=== PATIENT | male | born 1935 | race Caucasian/White ===

== ENCOUNTER 2016-11-17 15:55 | Observation (INO) | payer MEDICARE ==
[~2016-11-17] VITALS: Ht 175.3 cm; Wt 91.6 kg
[~2016-11-17 15:55] MED LIST changes: -CITALOPRAM HYDR40 MG PO; -GOOD NEIGHBOR P20 M1 PO
--- OUTSIDE RECORDS SUMMARY | 2016-11-17 15:59 | External Medical Summary Rpt ---
Author Author [facility], [employer] Organization [employer] Address Unknown Phone Unavailable
--- OUTSIDE RECORDS SUMMARY | 2016-11-17 15:59 | External Medical Summary Rpt ---
Author Author , Organization [employer] Address Unknown Phone Unavailable Purpose Continuity of Care Document - through 2016
--- OUTSIDE RECORDS SUMMARY | 2016-11-17 15:59 | External Medical Summary Rpt ---
Demographics Preferred Language Macedonian Marital Status Unknown Pentecostal Affiliation Unknown Race Unknown Ethnic Group Unknown Author Author , Organization [employer] Address Unknown Phone Unavailable Purpose Continuity of Care Document - through 2016 Immunization No patient found.
--- OUTSIDE RECORDS SUMMARY | 2016-11-17 15:59 | External Medical Summary Rpt ---
Author Author [employer] Organization [employer] Address Unknown Phone Unavailable Purpose Continuity of Care Document - through 2016
--- OUTSIDE RECORDS SUMMARY | 2016-11-17 15:59 | External Medical Summary Rpt ---
Author Author [facility] Organization [facility] Address Unknown Phone Unavailable Care Team Providers Care Supervisor Garage Name Role Phone KAYCEE, (REF) PCP [phone] Encounter [facility] [id number] Date(s): 09/03/16 - 09/16/16 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 Signs Most recent 1 2 3 to oldest [Reference Range]: Temperature Temporal artery Temporal artery Temporal artery Source scanning (09/16/16 scanning (09/16/16 scanning (09/16/16 12:56 PM) 12:30 PM) 11:45 AM) Temperature Fahrenheit Fahrenheit Fahrenheit Mode (09/16/16 12:56 (09/16/16 12:30 (09/16/16 11:45 PM) PM) AM) Temperature, 97.6 Deg F 97.4 Deg F 97.1 Deg F Fahrenheit (09/16/16 12:56 (09/16/16 12:30 (09/16/16 11:45 [96.8-99.7 PM) PM) AM) Deg F] Clinical 36.4 Deg C 36.3 Deg C 36.2 Deg C Temperature, (09/16/16 12:56 (09/16/16 12:30 (09/16/16 11:45 C PM) PM) AM) Peripheral 85 bpm 86 bpm 92 bpm Pulse Rate (09/16/16 1:45 PM) (09/16/16 1:30 PM) (09/16/16 1:15 PM) [60-100 bpm] Heart Rate 89 bpm (09/16/16 92 bpm (09/16/16 93 bpm (09/16/16 Monitored 12:40 PM) 12:30 PM) 12:20 PM) [60-100 bpm] Respiratory 16 Breaths/Min 14 Breaths/Min 14 Breaths/Min Rate [14-20 (09/16/16 12:30 (09/16/16 12:20 (09/16/16 12:15 Breaths/Min] PM) PM) PM) Blood 118/56 mmHg 118/58 mmHg 121/61 mmHg Pressure (09/16/16 1:45 PM) (09/16/16 1:30 PM) (09/16/16 1:15 PM) [90-140/60-9 0 mmHg] Mean 88 (09/16/16 12:56 88 (09/16/16 12:40 87 (09/16/16 12:30 Arterial PM) PM) PM) Pressure (MAP)-BMDI Oxygen 98 % 97 % 97 % Saturation (09/16/16 1:45 PM) (09/16/16 1:30 PM) (09/16/16 1:15 PM) [94-100 %] Oxygen Room air (09/16/16 Room air (09/16/16 Room air (09/16/16 Therapy Mode 12:56 PM) 12:45 PM) 12:40 PM) Oxygen Flow 6 Liter/Min 6 Liter/Min Rate (09/16/16 11:55 (09/16/16 11:45 AM) AM) Height Measured Source (09/15/16 3:31 PM) Height Entry Stevenson Format (09/15/16 3:31 PM) Height/Lengt 69 Inch h ERITREAN (09/15/16 3:31 PM) CLINICALHEIG 175.26 cm HT (09/15/16 3:31 PM) Weight Standing scale Source (09/15/16 3:31 PM) Weight Entry Stevenson Format (09/15/16 3:31 PM) Weight 205.8 lb Iranian lb (09/15/16 3:31 PM) CLINICALWEIG 93.55 kg HT (09/15/16 3:31 PM) Body Surface 2.09 m2 Area (BSA) (09/15/16 3:31 PM) Body Mass 30.5 kg/m2 Index *HI* [19.0-24.0 (09/15/16 3:31 PM) kg/m2] [place] Body 70 kg Weight (09/15/16 3:31 PM) Problem List Condition Effective Status Health Informant Dates Status Angina(Confi Active rmed) Arthritis(Co Active nfirmed) Back Active pain(Confirm ed) CA - Cancer Active of prostate(Con firmed) Cardiac Active arrhythmia, "beats fast"(Confir med) Chronic Active diarrhea(Con firmed) Coronary Active artery disease(Conf irmed) Disorder of Active prostate(Con firmed) Peripheral Active neuropathy(C onfirmed) Hard of Active hearing(Conf irmed) Hard of Active hearing(Conf irmed) Hyperlipidem Active ia(Confirmed ) Impaired Active vision(Confi rmed) Incontinence Active urine h/o(Confirme d) Insulin-depe Active ndent diabetes mellitus(Con firmed) Skin Active cancer(Confi rmed) Anxiety and Active depression(C onfirmed) Fluttering Active muscles(Conf irmed)1 Myocardial 2004 Active infarction(C onfirmed) neck pain Active when lying flat ; neck extension and turning limited(Conf irmed) gisele Active risk(Confirm ed) Peripheral Active neuropathy, bilateral feet(Confirm ed) right eyelid Active droops(Confi rmed) Sinusitis(Co Active nfirmed) Skin Active cancer(Confi rmed) weakness, Active freq. falls uses cane(Confirm ed) 1"fluttering sensation across chest and down left arm Allergies, Adverse Reactions, Alerts No Known Allergies Medications aspirin (Dawson Low Dose) 81 mg, Oral, Every Day, Refills: 0 atorvastatin 10 mg, Oral, At Bedtime, Refills: 0 citalopram 20 mg, Oral, Every Day, Refills: 0 clonazepam 0.5 mg, Oral, Two Times A Day, Refills: 0 gabapentin (gabapentin 100 mg oral capsule) 2 Cap, Oral, Four Times A Day, Refills: 0 insulin detemir (Levemir FlexPen)35 Units, SubCutaneous , At Bedtime, Refills: 0 insulin regular (Humulin R)30 Units, , SubCutaneous , at breakfast, Refills: 0 insulin regular (Humulin R) 30 Units, SubCutaneous , Every Day, Refills: 0 insulin regular (Humulin R) 30 Units, SubCutaneous , at dinner, Refills: 0 metolazone2.5 mg, Oral, Every Day, As Needed, Edema, Refills: 0 multivitamin 1 Tab, Oral, Every Day, Refills: 0 nitroglycerin (Nitrostat 0.4 mg sublingual tablet)1 Tab, SubLINgual , every 5 minutes, As Needed, Chest Pain, Refills: 0 oxybutynin (oxybutynin extended release) 10 mg, Oral, Every Day, Refills: 0 trazodone 50 mg, Oral, At Bedtime, Refills: 0 Results GENERAL CHEMISTRY Most recent 1 2 to oldest [Reference Range]: Device Notified Nurse RBV Comment 1 *NA* (09/16/16 11:51 AM) Glucose POC2 249 mg/dL 189 mg/dL [70-110 *HI* *HI* mg/dL] (09/16/16 11:51 AM) (09/16/16 8:50 AM) Immunizations No data available for this section Procedures Procedure Date Related Body Site Diagnosis skin cancer excision Social History Social History Response Type Smoking Status Tobacco Use Within Last Twelve Months Cigarettes; Former smoker; Years of Tobacco Use 10; Packs/Tins Daily 1; Used Tobacco, but Quit Yes; Month Tobacco Last Used quit 1989; Second Hand Smoke Exposure No; Tobacco Use/Smoking Within Last 30 Days No; Smokeless Tobacco Use History None; Smoking Frequency Within Last 30 Days None Assessment and Plan No data available for this section Hospital Discharge Instructions Patient EducationBiopsy, Care After, Pceo-zd-[id number] Incision Care, Febg-fh-Gssm Monitored Anesthesia Care
--- OUTSIDE RECORDS SUMMARY | 2016-11-17 15:59 | External Medical Summary Rpt ---
Demographics Preferred Language Armenian Marital Status Unknown Hinduism Affiliation Unknown Race Unknown Ethnic Group Unknown Author Author , Organization [employer] Address Unknown Phone Unavailable Purpose Continuity of Care Document - through 2016 Immunization No patient found.
--- OUTSIDE RECORDS SUMMARY | 2016-11-17 15:59 | External Medical Summary Rpt ---
Author Author [facility] Organization [facility] Address Unknown Phone Unavailable Care Team Providers Care Comic Illustrator Name Role Phone KAYCEE, (REF) PCP [phone] Encounter [facility] [id number] Date(s): 09/03/16 - 09/16/16 [facility] [address] [place] [address]- Discharge Disposition: OP Self Care or Home [...] Measured Source (09/15/16 3:31 PM) Height Entry Ensign Format (09/15/16 3:31 PM) Height/Lengt 69 Inch h BRITISH (09/15/16 3:31 PM) CLINICALHEIG 175.26 cm HT (09/15/16 3:31 PM) Weight Standing scale Source (09/15/16 3:31 PM) Weight Entry Ensign Format (09/15/16 3:31 PM) Weight 205.8 lb Egyptian lb (09/15/16 3:31 PM) CLINICALWEIG 93.55 kg HT (09/15/16 3:31 PM) Body Surface 2.09 m2 Area (BSA) (09/15/16 3:31 PM) Body Mass 30.5 kg/m2 Index *HI* [19.0-24.0 (09/15/16 3:31 PM) kg/m2] [place] Body 70 kg Weight (09/15/16 3:31 PM) [...] Hospital Discharge Instructions Patient EducationBiopsy, Care After, [id number]-kf-Aqxl Incision Care, Lalx-ay-Nren Monitored Anesthesia Care
--- NOTE | 2016-11-17 16:27 | HISTORY AND PHYSICAL REPORT ---
Demographics: Admit date: 11/17/16 Chief complaint: Chest pain/dizziness PRIMARY DIAGNOSIS: Accelerating angina Allergies: Coded Allergies: No Known Allergies (07/25/15) History of present illness: History of present illness: 81 year old White male insulin requiring diabetic with history of coronary disease status postfive-vessel CABG in 2003with CONTRERAS to the LAD is the predominant bypass graft. he has done well since that time although continues to suffer occasional problems with neuropathy. He's undergone several basal cell cancer removals done well with this,but has also had frequent bouts of anxiety issues. 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 Came to the office. On auscultation he has a new S3 gallop, EKG showsdiffuse and nonspecific ST/T-wave depression, and I admitted in the hospital for rule out NJ and cardiology evaluation. Past medical history: Family HX Diabetes Yes CAD Yes Hypertension Yes Hyperlipidemia No Cancer Yes TB No Immunization HX DT/Tetanus Unknown Pneumonia Received In Past General Angina: Yes NJ: Yes Hypertension? Yes Hyperlipidemia? Yes CHF? No COPD? No Asthma? No Hernia? Yes Thyroid Problems? Yes CVA? No Seizures? No Diabetes? Yes UTI? No Stones? Yes GB Disease: Yes Nephritic Syndrome? No Hepatitis? No Arthritis? Yes Cataracts? No Glaucoma? No MRSA? No TB? No Cancer? Yes Site: SKIN, PROSTATE Past Surgical HX Previous Surgery?Y 3 BACK SURGERIES LAP LIBERTAD PARTIAL THYROIDECTOMY EAR SURGERY 05/02/14 Coronary Artery Bypass Prostate Procedures Current home meds: Reported Medications Atorvastatin Calcium (Lipitor 10MG) 10 MG PO QHS Furosemide (Furosemide 40MG) 40 MG PO DAILY Alprazolam (Xanax 0.5MG) 0.5 MG PO TIDP PRN ANXIETY Clonazepam (Clonazepam 0.5MG) 0.5 MG PO BID INSULIN REGULAR, HUMAN (Humulin R INSULIN 10ML Vial) 24 UNITS SC AC Insulin Detemir (Levemir 10ML VIAL) 40 UNITS SC QHS TRAZODONE HCL (Trazodone HCl) 50 MG PO QHS Oxybutynin Chloride (Ditropan Xl) 10 MG PO DAILY Cyanocobalamin (Vitamin B12) 1,000 MCG PO DAILY MULTIVIT,THER IRON,CA,FA & MIN (Sm Therapeutic M Tablet) 1 TAB PO DAILY ERGOCALCIFEROL (VITAMIN D2) (Vitamin D2) 50,000 IUNITS PO 2 X WEEKLY Ciprofloxacin HCl 250 MG PO BID Social Hx: Smoking HX Tobacco No Alcohol Alcohol: No Hx of Drug Use Drug Use? No Patien't marital status is Patient's support system is excellent Review of systems: Constitutional weakness. No: fever, malaise. Respiratory No: no symptoms reported. Cardiovascular chest pain, edema Gastrointestinal/Abdominal see HPI Genitourinary No: no symptoms reported. Musculoskeletal No: no symptoms reported. Neurological Yes: numbness, tingling. Exam: Additional information: Patient alert, oriented x3, slightlyanxious appearing. No diaphoresis currently. Blood pressure is normal at 122/80, pulse rate in the high 80s but regular. Cardiac exam withS3 gallop, new since last exam. No murmurs. No significant edema. Previously noted diabetic neuropathy. Cranial nerves are intact. Plan: Problem List 1. S3 (third heart sound) 2. Accelerating angina 3. Insulin-requiring or dependent type II diabetes mellitus Plan: plan will be to admit to telemetry unit. Serial enzymes and EKG. Urgent cardiology consult. at 1627
[2016-11-17 17:06] LABS: HEMOGLOBIN 11.9 g/dL (14.1-18.0); LYMPH # 1.5 K/mm3 (0.7-4.5); LYMPH % 31.4 % (10-50)
[2016-11-17 17:22] LABS: BUN 24 mg/dL (7-18); GFR (ESTIMATED) 42 ML/MIN (>60)
[2016-11-17 18:08] VITALS: BP 141/77
[2016-11-17 18:14] VITALS: BP 141/77
--- NOTE | 2016-11-17 18:23 | RADIOLOGY REPORT PS360 ---
PROCEDURE: 2-D M-mode and color Doppler study INDICATIONS FOR THE TEST: Chest pain+ COPD Heart Murmur Tobacco Smoking Palpitations+ Fatigue Syncope Edema+ Hypertension+Diabetes Mellitus+ Rheumatic Fever SOB+SIMPSON+Obesity+Hyperlipidemia+ Family History HD+ Additional History chest pressure, hx of scarlet fever, CABG x 5 PATIENT INFORMATION HEIGHT: 69 WEIGHT: 195 GENDER: Male B/P: 141/77 2-D/M-MODE INTERPRETATION: 2-D MEASUREMENTS OBSERVED VALUES IN CMS Right Ventricular Dimension (RVDd) 2.2 Interventricular Septum (Thickness)(IVsd) 1.1 Left Ventricular Internal Dimensions(LVIDd) 5.1 Left Ventricular Posterior Wall (Thickness)(LVPWd) 1.1 Aortic Root 2.3 Aortic Cusp Separation 2.0 Left Atrial Dimensions (LAD) 2.7 2D 1. Left atrium is mildly enlarged, left ventricle is normal size, there is mild concentric left ventricular hypertrophy present, visually estimated ejection fraction of 55% with no obvious regional wall motion abnormality. 2. The right atrium and right ventricle are normal size and contractility. 3. The aortic valve is thickened and calcified leaflet continue to display some mobility. 4. The mitral valve has dense mitral annular calcification which extends and both anterior and posterior mitral leaflet. 5. The tricuspid valve leaflets are minimally thickened. 6. The pulmonic valve is not well visualized. 7. No significant pericardial effusion noted. DOPPLER INTERROGATION: Doppler interrogation of the aortic mitral and tricuspid valvular presence of mild mitral and tricuspid regurgitation, trace aortic insufficiency also seen. Tricuspid regurgitant jet velocity insufficient for calculation of the right ventricular systolic pressure, grade 1 diastolic dysfunction seen with tissue Doppler evidence of raised left atrial pressure. CONCLUSION: 1. Mildly enlarged left atrium, normal left ventricular size, mild concentric left ventricular hypertrophy present, visually estimated ejection fraction of 55% with no obvious regional wall motion abnormality, grade 1 diastolic dysfunction seen with Doppler evidence of raised left atrial pressure. 2. Mild mitral and tricuspid regurgitation. 3. No significant pericardial effusion noted.
[2016-11-17 19:24] VITALS: BP 147/71
--- NOTE | 2016-11-17 20:56 | PHARMACY CLINIC NOTE ---
Patient Demographics Patient Demographics Admission date: 11/17/16 Date: 11/17/16 Time: 2054 Allergies Coded Allergies: No Known Allergies (11/17/16) HEIGHT- FT: 5 IN: 9.00 K.627 Problem List 1. Accelerating angina VTE General Information Labs: Laboratory Tests 11/17 1644 Hematology Hgb (14.1 - 18.0 g/dL) 11.9 L Hct (42.0 - 52.0 %) 34.3 L Plt Count (142 - 424 K/mm3) 167 Disclaimer The following section includes nursing documentation that has been pulled in for pharmacy review. Patient's VTE score: 1 Patient's VTE Risk: VERY LOW RISK Clinical trial participant? No VTE prophylaxis [id number] VTE prophylaxis ordered? Yes Type of prophylaxis/treatment: KRISSY at 2054
[2016-11-18] VITALS (10 sets, daily range): BP systolic 128–164; BP diastolic 70–89
--- NOTE | 2016-11-18 07:33 | ACUTE CARE PROGRESS NOTE (QUA) ---
Progress Notes Subjective Date 11/18/16 Time 0732 Patient/family reports: feeling better, no complaints Nursing reports: alert, no complaints Objective Findings Last VS-Temp:98.9 B/P:156/82 Pulse:75 Resp:18 SaO2:96 ROOM AIR Last weight lbs:202 oz:0 K.627 Method:Bed Scales Exam General appearance: normal appearance, alert Eyes: normal exam Neck: normal inspection, non-tender Cardiovascular: normal exam, no JVD Respiratory: normal exam, aerating well ABD: soft Assessment/Plan Problem List 1. S3 (third heart sound) 2. Accelerating angina 3. Insulin-requiring or dependent type II diabetes mellitus Patient condition Stable Plan: continue current care, consult securities sales associate This inpt stay is expected to cross 2 MNs from start of care No at [phone]
--- NOTE | 2016-11-18 07:33 | ACUTE CARE PROGRESS NOTE (QUA) ---
Progress Notes Subjective Date 11/18/16 Time 0732 Patient/family reports: feeling better, no complaints Nursing reports: alert, no complaints Objective Findings Last VS-Temp:98.9 B/P:156/82 Pulse:75 Resp:18 SaO2:96 ROOM AIR Last weight lbs:202 oz:0 K.627 Method:Bed Scales Exam General appearance: normal appearance, alert Eyes: normal exam Neck: normal inspection, non-tender Cardiovascular: normal exam, no JVD Respiratory: normal exam, aerating well ABD: soft Assessment/Plan Problem List 1. S3 (third heart sound) 2. Accelerating angina 3. Insulin-requiring or dependent type II diabetes mellitus Patient condition Stable Plan: continue current care, consult inner tube tuber machine operator This inpt stay is expected to cross 2 MNs from start of care No at 0721
--- NOTE | 2016-11-18 07:41 | CONSULT NOTE ---
Standard Demographics Patient Demo Date of Consultation: 11/18/16 Referring Provider: Fab George MD Reason for Consultation: Unstable Angina PRIMARY DIAGNOSIS: Accelerating angina Problem list Problem list: 1. Coronary artery disease A. History of coronary bypass grafting of 5 vessels in 2003, Dr. Harinder Brown. CONTRERAS to left anterior descending, saphenous vein graft to OM1 and OM 2 and saphenous vein graft to PDA/PLB. B. History of cardiac cath, 2011, 3 of 3 bypasses patent to four target zones. 2. 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 Hypertension 4. Hyperlipidemia 5. History of prostate cancer status post radiation therapy. 6. Osteoarthritis 7. Status post cholecystectomy 8. Partial thyroidectomy 9. Chronic kidney disease stage III with creatinine 1.6 GFR 42. History of present illness: History of present illness: 81 year old White male insulin requiring diabetic with history of coronary disease status postfive-vessel CABG in 2003with CONTRERAS to the LAD is the predominant bypass graft. he has done well since that time although continues to suffer occasional problems with neuropathy. He's undergone several basal cell cancer removals done well with this,but has also had frequent bouts of anxiety issues. 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 Came to the office. On auscultation he has a new S3 gallop, EKG showsdiffuse and nonspecific ST/T-wave depression, and I admitted in the hospital for rule out HI and cardiology evaluation. The above per Dr. George. The patient relates recurrent episodes of exertional shortness of breath, chest tightness with diaphoresis and nausea over the last couple of weeks. This has progressed to include symptoms that occur with daily activities and even at rest. The symptoms are similar to what the patient had prior to his bypass surgery many years ago. Patient was admitted with monitoring of serial cardiac enzymes which have been normal. Echocardiogram yesterday shows normal ejection fraction with mild valvular insufficiency. EKG is sinus without acute ST segment changes. Cardiology consulted for evaluation and recommendations. Past Medical History: General: Hypertension Yes CVA No Seizures No TB No COPD No Asthma No Diabetes Yes Insulin Dependent Yes Insulin Pump No Angina Yes HI Yes Hyperlipidemia Yes Urinary No Cancer Yes Rheumatic H.D. No Ulcers Yes MRSA No GB Disease Yes Other SCARLET FEVER,HIATAL SOHAN Past Surgical HX: Previous Surgery?Y 3 BACK SURGERIES [employer] PARTIAL THYROIDECTOMY EAR SURGERY 05/02/14 Coronary Artery Bypass Prostate Procedures Allergies Coded Allergies: No Known Allergies (11/17/16) Home medications: Reported Medications Atorvastatin Calcium (Lipitor 10MG) 10 MG PO QHS Furosemide (Furosemide 40MG) 40 MG PO DAILY Alprazolam (Xanax 0.5MG) 0.5 MG PO TIDP PRN ANXIETY Clonazepam (Clonazepam 0.5MG) 0.5 MG PO BID INSULIN REGULAR, HUMAN (Humulin R INSULIN 10ML Vial) 24 UNITS SC AC Insulin Detemir (Levemir 10ML VIAL) 40 UNITS SC QHS TRAZODONE HCL (Trazodone HCl) 50 MG PO QHS Oxybutynin Chloride (Ditropan Xl) 10 MG PO DAILY Cyanocobalamin (Vitamin B12) 1,000 MCG PO DAILY Ciprofloxacin HCl 250 MG PO BID Current Medications: Current Medications Fentanyl Citrate 25 MCG PRN PRN IV (UNV) Fentanyl Citrate 50 MCG PRN PRN IV (UNV) Flumazenil 0.2 MG PRN PRN IV (UNV) Heparin Sodium (Beef Lung) 5,000 UNITS PRN PRN IV (UNV) Heparin Sodium/Sodium Chloride 3,000 UNITS PRN PRN IV (UNV) Lidocaine HCl 20 ML ONCE ONE IJ (UNV) Midazolam HCl 1 MG PRN PRN IV (UNV) Midazolam HCl 1 MG PRN PRN IV (UNV) Naloxone HCl 0.4 MG U8OXCNGC PRN IV (UNV) Nitroglycerin 800 MCG PRN PRN IV (UNV) Verapamil HCl 5 MG PRN PRN IV (UNV) Atorvastatin Calcium 80 MG QHS PO Pantoprazole Sodium 40 MG QHS IV Aspirin 0 .STK-MED ONE .ROUTE (DC) Diagnostic Test (Pha) 1 EACH W/MEALS&HS FS Insulin Human [rDNA origin] SEE ADMIN CRITERIA W/MEALS&HS SC Sodium Chloride 10 ML PRN PRN IV Nitroglycerin 1 IN Q8 TP Aspirin 325 MG DAILY PO Clopidogrel Bisulfate 75 MG DAILY PO Acetaminophen 650 MG Q4HP PRN PO Nicotine 21 MG DAILYP PRN TD Temazepam 15 MG QHSP PRN PO Immunization HX DT/Tetanus 1-4 Years Pneumonia RECEIVED IN PAST TB Test in last year No Family history Family HX Family Hx Insignificant No Diabetes Yes CAD Yes Hypertension Yes Hyperlipidemia Yes Cancer No TB No Social Hx: Smoking HX Tobacco No Are you/the child exposed to second-hand smoke: No Alcohol Alcohol: No Hx of Drug Use Drug Use? No Patien't marital status is Patient's support system is excellent Review of systems: Constitutional weakness. Respiratory SOB with excertion. Cardiovascular see HPI, chest pain Gastrointestinal/Abdominal nausea Genitourinary No: no symptoms reported. Musculoskeletal back pain. Neurological Yes: tingling. Exam: Admission Vital Signs: 1ST Vital Signs Result Date Time Pulse Ox 99 11/18 1807 O2 Delivery ROOM AIR 11/18 1807 B/P 141/77 11/17 180 Temp 98.5 11/18 1807 Pulse 72 11/18 1807 Resp 18 11/18 1807 Last Vital Signs: Vital Signs Result Date Time Pulse Ox 96 11/18 433 B/P 156/82 11/18 433 O2 Delivery ROOM AIR 11/18 433 Temp 98.9 11/18 433 Pulse 75 11/18 0434 Resp 18 11/18 0434 Exam General appearance: alert, awake, no acute distress Neck: no carotid bruit, no JVD Cardiovascular: regular rate & rhythm, murmur Respiratory: clear to auscultation, good air movement ABD: soft, no tenderness Extremities: moves all, no peripheral edema Neuro: alert, intact, oriented Laboratory data: Laboratory Tests 11/18/16 0055: Creatine Kinase 66, CK-MB (CK-2) Rel Index 2.0, CK and CKMB Interp 1.3, Troponin I < 0.02 11/17/16 2156: Creatine Kinase 65, CK-MB (CK-2) Rel Index 1.5, CK and CKMB Interp 1.0, Troponin I < 0.02 11/17/16 1857: Creatine Kinase 69, CK-MB (CK-2) Rel Index 1.7, CK and CKMB Interp 1.2, Troponin I < 0.02 11/17/16 1645: Sodium 139, Potassium 4.5, Chloride 105, Carbon Dioxide 27, BUN 24 H, Creatinine 1.6 H, Estimated GFR (MDRD) 42, Glucose 186 H, Calcium 8.7, Creatine Kinase 72, CK-MB (CK-2) Rel Index 1.7, CK and CKMB Interp 1.2, Troponin I < 0.02, B-Natriuretic Peptide 80, WBC 4.6 L, RBC 3.74 L, Hgb 11.9 L, Hct 34.3 L, MCV 91.9, RDW 13.4, Plt Count 167, MPV 6.4 L, Gran % 56.9, Gran # 2.6, Lymphocytes % 31.4, Monocytes % 6.2, Eosinophils % 5.1, Basophils % 0.4, Lymphocytes # 1.5, Monocytes # 0.3, Eosinophils # 0.2, Basophils # 0.0, PUBS MCHC 34.5, MCH 31.7 H Plan: Assessment: 1. Recurrent episodes of chest pain, shortness of breath and diaphoresis consistent with unstable angina pectoris in this patient with known coronary artery disease and history of bypass surgery. 2. Diabetes mellitus, insulin requiring 3. History of hypertension 4. Hyperlipidemia 5. Chronic kidney disease stage 3 with creatinine 1.6, GFR 42 6. Mild anemia, hemoglobin 11.9 Recommendations: 1. Proceed with LEFT heart catheterization to evaluate [place] and bypass arteries for recurrent coronary disease. 2. Further recommendations to follow. at 0813
[2016-11-18] MEDS ORDERED: CITALOPRAM HYDR40 MG PO (09:02)
[2016-11-18] MEDS ORDERED: GOOD NEIGHBOR P20 M1 PO (14:22)
--- NOTE | 2016-11-18 15:05 | RADIOLOGY REPORT PS360 ---
CARDIAC CATHETERIZATION DATE OF CATHETERIZATION:11/18/2016 12:29 PM PROCEDURES: 1. Left heart catheterization 2. Left ventriculogram 3. Selective coronary angiogram 4. Selective engagement left internal mammary artery to the LAD 5. Selective engagement of the saphenous vein graft to the right coronary artery 6. Selective engagement of the saphenous vein graft to the left coronary artery INDICATION FOR TEST: 1. Coronary artery disease 2. History of coronary bypass surgery 3. Unstable angina Informed consent was obtained prior to the procedure. COMPLICATIONS: None ESTIMATED BLOOD LOSS: Less than 10 ml. TECHNIQUE: One percent lidocaine was used to anesthetize the right groin. The right femoral artery was accessed via the Seldinger technique. A 4-[place] sheath was placed in the right femoral artery. Over a 3 J-wire a JL 4 JR4 catheter were used to perform left heart catheterization left ventriculogram and selective coronary angiography. The JR4 catheter was used to selectively intubate the CONTRERAS graft to the LAD as well as the 2 vein grafts to the right coronary artery and left coronary artery. At the end of the procedure bilateral selective renal angiography was performed because of patient's hypertension and creatinine of 1.6. This procedure was not saved by cine loops however it was visualized and not charged to the patient at the end of the procedure the sheath was removed good hemostasis was achieved using manual pressure patient transferred to the postop holding area in stable condition ANGIOGRAPHIC RESULTS: 1. The left main artery ostially occluded 2. The left anterior descending artery ostially occluded 3. The circumflex artery ostially occluded 4. The right coronary artery is dominant and has an ostial or proximal 80% stenosis followed by a densely calcified mid vessel 99% stenosis followed by a long 80-90% stenosis. 5. The EMANUEL ventriculogram reveals preserved 55-60% 6. The left ventricular end-diastolic pressure mildly elevated 15 mmHg 7. A CONTRERAS graft to the LAD is widely patent as is the [place] LAD 8. The saphenous vein graft to the diagonal artery is widely patent graft 9. And makes to anastomoses. The first diagonal artery makes its first anastomosis and then skips over to the second diagonal artery. All saphenous limbs are patent as are the [place] diagonal arteries 10. The saphenous vein graft to the posterior descending artery is a widely patent graft. The posterior lateral ventricular branch is occluded proximally with no retrograde filling from this graft. The graft then skips over to a terminal obtuse marginal artery off the circumflex artery which is also widely patent. The obtuse marginal arteries medium in size IMPRESSION: 1. Adequate 5 vessel coronary artery bypass grafting as described above 2. Severe [place] coronary artery disease which is adequately bypassed with complete surgical revascularization 3. Preserved ejection fraction 4. Normal left ventricular end-diastolic pressure PLAN: 1. Medical management 2. Antianginal therapy 3. Risk factor modification
--- NOTE | 2016-11-18 15:05 | RADIOLOGY REPORT PS360 ---
CARDIAC CATHETERIZATION DATE OF CATHETERIZATION:11/18/2016 12:29 PM PROCEDURES: 1. Left heart catheterization 2. Left ventriculogram 3. Selective coronary angiogram 4. Selective engagement left internal mammary artery to the LAD 5. Selective engagement of the saphenous vein graft to the right coronary artery 6. Selective engagement of the saphenous vein graft to the left coronary artery INDICATION FOR TEST: 1. Coronary artery disease 2. History of coronary bypass surgery 3. Unstable angina Informed consent was obtained prior to the procedure. COMPLICATIONS: None ESTIMATED BLOOD LOSS: Less than 10 ml. TECHNIQUE: One percent lidocaine was used to anesthetize the right groin. The right femoral artery was accessed via the Seldinger technique. A 4-[place] sheath was placed in the right femoral artery. Over a 3 J-wire a JL 4 JR4 catheter were used to perform left heart catheterization left ventriculogram and selective coronary angiography. The JR4 catheter was used to selectively intubate the CONTRERAS graft to the LAD as well as the 2 vein grafts to the right coronary artery and left coronary artery. At the end of the procedure bilateral selective renal angiography was performed because of patient's hypertension and creatinine of 1.6. This procedure was not saved by cine loops however it was visualized and not charged to the patient at the end of the procedure the sheath was removed good hemostasis was achieved using manual pressure patient transferred to the postop holding area in stable condition ANGIOGRAPHIC RESULTS: 1. The left main artery ostially occluded 2. The left anterior descending artery ostially occluded 3. The circumflex artery ostially occluded 4. The right coronary artery is dominant and has an ostial or proximal 80% stenosis followed by a densely calcified mid vessel 99% stenosis followed by a long 80-90% stenosis. 5. The EMANUEL ventriculogram reveals preserved 55-60% 6. The left ventricular end-diastolic pressure mildly elevated 15 mmHg 7. A CONTRERAS graft to the LAD is widely patent as is the [place] LAD 8. The saphenous vein graft to the diagonal artery is widely patent graft 9. And makes to anastomoses. The first diagonal artery makes its first anastomosis and then skips over to the second diagonal artery. All saphenous limbs are patent as are the [place] diagonal arteries 10. The saphenous vein graft to the posterior descending artery is a widely patent graft. The posterior lateral ventricular branch is occluded proximally with no retrograde filling from this graft. The graft then skips over to a terminal obtuse marginal artery off the circumflex artery which is also widely patent. The obtuse marginal arteries medium in size IMPRESSION: 1. Adequate 5 vessel coronary artery bypass grafting as described above 2. Severe [place] coronary artery disease which is adequately bypassed with complete surgical revascularization 3. Preserved ejection fraction 4. Normal left ventricular end-diastolic pressure PLAN: 1. Medical management 2. Antianginal therapy 3. Risk factor modification
== END 2016-11-18 16:40 | disposition home or self-care (01) ==
LOC: 2ND 15:55
PROVIDERS: Internal Medicine; Internal Medicine Adolescent Medicine
PROC: B2111ZZ Fluoroscopy of Multiple Coronary Arteries using Low Osmolar Contrast (ICD-10-PCS; 2016-11-18)
PROC: B2151ZZ Fluoroscopy of Left Heart using Low Osmolar Contrast (ICD-10-PCS; 2016-11-18)
PROC: 4A023N7 Measurement of Cardiac Sampling and Pressure, Left Heart, Percutaneous Approach (ICD-10-PCS; principal; 2016-11-18 13:00)
DX: I25.110 Atherosclerotic heart disease of native coronary artery with unstable angina pectoris (principal); Z95.1 Presence of aortocoronary bypass graft; E11.9 Type 2 diabetes mellitus without complications; R06.00 Dyspnea, unspecified
CPT/HCPCS: C1725; C1769; G0378; J1644; Q9967

== ENCOUNTER → 2016-11-17 | Emergency (ER) | payer MEDICARE ==
[~2016-11-17] VITALS: Ht 175.3 cm; Wt 88.5 kg
[~2016-11-17] MED LIST: ALPRAZOLAM0.25 M2 PO; AMARYL1 MG PO; ASPIRIN 81MG TA81 MG PO; AVODART0.5 MG PO; CENTRUM SILVER1 TAB PO; CIPROFLOXACIN500 MG PO; CITALOPRAM HYDR40 MG PO; CLONAZEPAM0.5 M1 PO; DITROPAN XL10 MG PO; FLOMAX 0.4MG C0.4 MG PO; FUROSEMIDE 20MG20 MG FT; FUROSEMIDE40 MG PO; GOOD NEIGHBOR P20 M1 PO; HUMULIN R100 UNITS/ SC; JANUMET 500 MG-1 TAB; KLONOPIN 0.5MG0.5 MG NG; LASIX20 MG PO; LEVEMIR100 U/ML SC; LIPITOR10 MG PO; OXYBUTYNIN CL; PLAVIX 75MG TAB75 MG PO; PRISTIQ50 MG PO; TRAZODONE 50MG50 MG PO; VITAMIN B12500 MCG PO; VITAMIN D50000 I1 PO; XANAX 0.5MG TA0.5 MG PO; [UNRECOGNIZED DRUG - OTHER] PO
--- NOTE | 2016-11-17 16:44 | Emergency Room Report ---
History of Present Illness Time Seen by 1652 Presenting Problem in Triage Pt arrived:Walked Presenting Problem:CP INTERMITTENTLY FOR DAYS TODAY BECAME SOA Onset of symptoms date/time:/ or onset unknown for:MEDICAL HX UNKNOWN Treatment Prior to Arrival: INSIGHT DIRECTOR Provided by: Sepsis Risk Assessment: Temp: 98.3 B/P: 121/85 MAP: 83 Pulse: 72 Resp: 18 Recent fever? N Clinical Suspician of Infection? N Mental Status: 1 - Regular (Normal Baseline) Sepsis Risk:Low Sepsis Risk Have you (or family members/close friends) recently traveled outside the [place]? N If Yes, where/when: Have you had exposure to infectious disease within the past month? TB? Other? Specify: Comment The patient was not seen by me. He was registered in the emergency department inadvertently, he was supposed to be a direct admit. Emergency department nurses had ordered labs per protocol, which had been assigned to me and I signed them, but did not review results. Portions of the chart had been completed as our requirements, but did not reflect any actual involvement with the patient. History was not obtained and examination was not performed. ALLERGIES Coded Allergies: No Known Allergies (11/17/16) Home Medications Active Scripts Omeprazole 20 MG PO BID #60 TCP Ref 2 Prov: 11/18/16 Reported Medications Atorvastatin Calcium (Lipitor 10MG) 10 MG PO QHS Furosemide (Furosemide 40MG) 40 MG PO DAILY INSULIN REGULAR, HUMAN (Humulin R INSULIN 10ML Vial) 30 UNITS SC AC Insulin Detemir (Levemir 10ML VIAL) 30 UNITS SC QHS Citalopram Hydrobromide (Citalopram HBr) 40 MG PO DAILY #14 Alprazolam (Xanax 0.5MG) 0.5 MG PO TIDP PRN ANXIETY Clonazepam (Clonazepam 0.5MG) 0.5 MG PO BID TRAZODONE HCL (Trazodone HCl) 50 MG PO QHS Oxybutynin Chloride (Ditropan Xl) 10 MG PO DAILY Cyanocobalamin (Vitamin B12) 1,000 MCG PO DAILY Ciprofloxacin HCl 250 MG PO BID History Medical History General Angina: Yes NM: Yes Hypertension? Yes Hyperlipidemia? Yes CHF? No COPD? No Asthma? No Hernia? Yes Thyroid Problems? Yes CVA? No Seizures? No Diabetes? Yes UTI? No Stones? Yes GB Disease: Yes Nephritic Syndrome? No Hepatitis? No Arthritis? Yes Cataracts? No Glaucoma? No MRSA? No TB? No Cancer? Yes Site: SKIN, PROSTATE Immunization Hx DT/Tetanus Unknown Pneumonia Received In Past Surgical Hx Previous Surgery?Y 3 BACK SURGERIES LAP LIBERTAD PARTIAL THYROIDECTOMY EAR SURGERY 05/02/14 Coronary Artery Bypass Prostate Procedures Family History Family Hx Diabetes Yes CAD Yes Hypertension Yes Hyperlipidemia No Cancer Yes TB No Social History Alcohol Alcohol: No Review of Systems All Other Systems Reviewed and Negative (not obtained) Physical Exam Vital Signs Vital Signs Date Time Temp Pulse Resp B/P Pulse O2 O2 Flow FiO2 Ox Delivery Rate 11/17 1805 72 18 121/85 98 11/17 1642 98.3 73 18 127/62 95 General Appearance normal appearance (not performed) Respiratory Status No: respiratory distress (not performed). Cardiovascular normal exam (not performed) Neurologic alert (not performed) Medical Decision Making LABS/Meds/Orders Pt receiving controlled substance in ED? No (patient not seen) Results/Orders Laboratory Tests 11/17/161645: Sodium Cancelled, Potassium Cancelled, Chloride Cancelled, Carbon Dioxide Cancelled, BUN Cancelled, Creatinine Cancelled, Estimated Creat Clear Cancelled, Estimated GFR (MDRD) Cancelled, Glucose Cancelled, Calcium Cancelled, Total Bilirubin Cancelled, AST Cancelled, ALT Cancelled, Alkaline Phosphatase Cancelled, Creatine Kinase Cancelled, CK-MB (CK-2) Rel Index Cancelled, CK and CKMB Interp Cancelled, Troponin I Cancelled, B-Natriuretic Peptide Cancelled, Total Protein Cancelled, Albumin Cancelled, Globulin Cancelled, Albumin/Globulin Ratio Cancelled, WBC Cancelled, RBC Cancelled, Hgb Cancelled, Hct Cancelled, MCV Cancelled, RDW Cancelled, Plt Count Cancelled, Gran % Cancelled, Gran # Cancelled, Lymphocytes % Cancelled, Eosinophils % Cancelled, Basophils % Cancelled, Lymphocytes # Cancelled, Eosinophils # Cancelled, Basophils # Cancelled, PUBS MCHC Cancelled, MCH Cancelled Orders Procedure Date/time Status ELECTROCARDIOGRAM REQUEST 11/17 1645 Active IV SALINE LOCK 11/17 1645 Active CM/EKG CM/EKG Comments EKG interpreted by Redd Small MD: Rhythm: sinus Rate: 76 [place]: normal Ectopy: none Conduction: normal ST Segment Changes: none T Wave Changes: none Q Waves: none No evidence of acute ischemia or injury Poor over progression Baseline artifact present, but I consider the EKG adequate for accurate interpretation. Departure Departure Disposition Still a Patient Clinical Impression Primary Impression: Intermittent chest pain Condition STABLE Referrals Fab George MD (Family) ED Critical Care Critical Care No If Critical Care minutes are documented, the time involved in the performance of seperately reportable procedures was not counted toward critical care time documented. I directly delivered medical care to this critically ill and/or injured patient. Timely evaluation and treatment was necessary to address the significant organ system(s) dysfunction present in this patient. Comments Patient not seen, diagnosis entered per nurse's history. at 2013
--- OUTSIDE RECORDS SUMMARY | 2016-11-17 16:57 | External Medical Summary Rpt ---
Demographics Preferred Language Thai Marital Status Unknown Holiness Affiliation Unknown Race Unknown Ethnic Group Unknown Author Author , Organization [employer] Address Unknown Phone Unavailable Purpose Continuity of Care Document - through 2016 Immunization No patient found.
--- OUTSIDE RECORDS SUMMARY | 2016-11-17 16:57 | External Medical Summary Rpt ---
Demographics Preferred Language Lao Marital Status Unknown Oriental Orthodox Affiliation Unknown Race Unknown Ethnic Group Unknown Author Author , Organization [employer] Address Unknown Phone Unavailable Purpose Continuity of Care Document - through 2016 Immunization No patient found.
[2016-11-17 18:05] VITALS: BP 121/85
--- NOTE | 2016-11-17 22:51 | RADIOLOGY REPORT PS360 ---
CHEST-PORTABLE HISTORY: Chest pain, former smoker CP ORDERING PHYSICIAN: Redd Small MD PATIENT AGE: 81 years COMPARISON: 03/14/2015 FINDINGS: There has been a prior median sternotomy. Normal heart size. Lungs are clear. No acute bony anomalies.. IMPRESSION: Prior CABG otherwise negative
== END ==
LOC: ER 16:41
DX: R07.9 Chest pain, unspecified (principal); I10 Essential (primary) hypertension